=== PATIENT | female | born 1980 | race Caucasian/White ===

== ENCOUNTER → 2017-12-10 | Outpatient (CLI) | payer OTHER ==
[~2017-12-10] VITALS: Ht 172.7 cm; Wt 80.3 kg
[~2017-12-10] MED LIST: SINCALIDE 1.61 MCG in IV NORMAL SALINE 50ML 30 ML IV ONE
--- NOTE | 2017-12-10 11:15 | RAD ---
HEPATOBILIARY SCAN WITH EJECTION FRACTION 12/10/2017 11:12 AM History: Chronic(10yr) intermittent RUQ Abd ache with occasional sharp pain into back - 5.5mci 99mTc Choletec - 1.61mCg Kinevac Comparison study: None Procedure: Serial static images are obtained of the liver and biliary system in the frontal projection following IV administration of 5.5 mCi of Technetium 99m Choletec. After filling of the gallbladder, 1.6 mcg of sincalide were infused over 30 minutes and dynamic imaging continued over this period. The gallbladder ejection fraction was calculated. Findings: There is prompt hepatic clearance of tracer from the blood pool. There is homogeneous distribution throughout the liver. The gallbladder ejection fraction measures 98% (normal gallbladder EF is 35% or greater). IMPRESSION: 1. The cystic duct and common bile duct are patent. Negative for acute cholecystitis. 2. The gallbladder ejection fraction is normal Electronically signed by: Rudy Lees MD (12/10/2017 11:12 AM) [id number]
== END | disposition home or self-care (01) ==
LOC: NM 07:04
PROVIDERS: ATTEND Physician Assistant
DX: R10.13 Epigastric pain (principal); R10.11 Right upper quadrant pain
CPT/HCPCS: 78226; 96374; 96375; A9537; J2805